=== PATIENT | male | born 1985 | race Caucasian/White ===

== ENCOUNTER 2016-09-28 19:56 | Emergency (ER) | payer BC ==
[~2016-09-28] VITALS: Ht 172.7 cm; Wt 104.5 kg
[~2016-09-28 19:56] MED LIST: COLACE 100100 MG/CAP PO; DILAUDID 2MG TAB2 MG PO; FLEXERIL5 MG PO; INVANZ INJ1 G/VIAL IV; MOTRIN 800800 MG/TAB PO; NAPROSYN500 MG PO; NEURONTIN100 MG/CAP PO; NO HOME MEDICATIONS; NORCO 325 MG-51 TAB PO; PERCOCET 325 MG1 TA2 PO; PREDNISONE20 MG PO; ROXICODONE 55 MG/TAB PO; TYLENOL 325MG325 MG PO; VALIUM 5MG T5 MG/TAB PO; VANCOCIN HCL1 GM IV
[2016-09-28 19:58] VITALS: BP 178/100; TEMP 99
[2016-09-28] MEDS ORDERED: CEPHALEXIN500 M1 PO (20:59)
[2016-09-28 22:40] VITALS: PULSE 90
== END 2016-09-28 22:35 | disposition home or self-care (01) ==
LOC: COL.ER 19:56
DX: S62.632B Displaced fracture of distal phalanx of right middle finger, initial encounter for open fracture (principal); S62.630A Displaced fracture of distal phalanx of right index finger, initial encounter for closed fracture; S60.141A Contusion of right ring finger with damage to nail, initial encounter; W23.0XXA Caught, crushed, jammed, or pinched between moving objects, initial encounter; Y92.009 Unspecified place in unspecified non-institutional (private) residence as the place of occurrence of the external cause

== ENCOUNTER 2018-08-19 11:37 | Emergency (ER) | payer OTHER ==
[~2018-08-19] VITALS: Ht 172.7 cm; Wt 104.5 kg
[~2018-08-19 11:37] MED LIST changes: +CEPHALEXIN500 M1 PO
[2018-08-19 11:38] VITALS: BP 184/113; PULSE 103; TEMP 97.8
[2018-08-19] MEDS ORDERED: PERCOCET 325 MG1 TA2 PO (12:34)
[2018-08-19] MEDS ORDERED: PEN-VEE K500 MG PO (12:34)
== END 2018-08-19 13:25 | disposition home or self-care (01) ==
LOC: COL.ER 11:37
DX: S02.5XXA Fracture of tooth (traumatic), initial encounter for closed fracture (principal); S00.81XA Abrasion of other part of head, initial encounter; Z23 Encounter for immunization; W20.8XXA Other cause of strike by thrown, projected or falling object, initial encounter; Y92.59 Other trade areas as the place of occurrence of the external cause

== ENCOUNTER 2018-10-23 16:49 | Emergency (ER) | payer BC ==
[~2018-10-23] VITALS: Ht 172.7 cm; Wt 97.7 kg
[~2018-10-23 16:49] MED LIST changes: +PEN-VEE K500 MG PO
[2018-10-23 16:55] VITALS: TEMP 98.7
[2018-10-23 17:38] LABS: BASO % 0.6 % (0.0-2.0); EOS # 0.1 (0.0-0.7); EOS % 0.8 % (0-4.0); GRAN # 5.4 (1.4-6.5); GRAN % 76.3 % (42.2-75.2); HEMATOCRIT 45.9 % (42.0-52.0); HEMOGLOBIN 14.8 g/dl (13.5-18.0); LYMPH # 1.2 (1.2-3.4); LYMPH % 16.6 % (20.0-51.0); MEAN CELL VOLUME 84 fl (80.0-100.0); MEAN CORPUSCULAR HEMOGLOBIN 27 pg (27.0-31.0); MEAN CORPUSCULAR HGB CONC 32 g/dl (33.0-37.0); MEAN PLATELET VOLUME 10.9 fl (7.4-10.4); MONO # 0.4 (0.1-0.6); MONO % 5.6 % (1.7-9.3); PLATELET COUNT 288 K/mm3 (130-400); RED BLOOD COUNT 5.46 M/mm3 (4.20-5.60); REDCELL DISTRIBUTION WIDTH-CV 12.4 % (11.5-14.5)
[2018-10-23 17:50] LABS: ALANINE AMINOTRANSFERASE 35 U/L (21-72); ALBUMIN 4.8 gm/dL (3.5-5.0); ALKALINE PHOSPHATASE 50 U/L (50-136); ANION GAP 13 mmol/L (7-16); AST,SGOT 35 U/L (15-37); BILIRUBIN,TOTAL 0.7 mg/dL (0.0-1.0); BLOOD UREA NITROGEN 5 mg/dL (9-20); CALCIUM 9.5 mg/dL (8.4-10.2); CARBON DIOXIDE 27 mmol/L (22-30); CHLORIDE 102 mmol/L (98-107); CREATININE, serum 0.86 (0.66-1.25); GLUCOSE 133 mg/dL (74-106); POTASSIUM 3.3 mmol/L (3.4-5.0); SODIUM 141 mmol/L (137-145); TOTAL PROTEIN 8.3 gm/dL (6.4-8.2)
[2018-10-23 18:16] LABS: ACETAMINOPHEN < 10 ug/mL (10-30); ALCOHOL(ethanol),MEDICAL < 10 mg/dL; SALICYLATE < 1.0 mg/dL
[2018-10-23 18:19] LABS: TSH w REFLEX 0.333 uIU/mL (0.465-4.680)
[2018-10-23 18:21] LABS: COLLECTION METHOD CLEAN CATCH
[2018-10-23 18:46] LABS: PH 6 (5-8); URINE APPEARANCE Clear; URINE BILIRUBIN Negative (NEGATIVE); URINE COLOR Yellow; URINE GLUCOSE Negative (NEGATIVE); URINE KETONE Trace (NEGATIVE); URINE PROTEIN(semi-quant) Negative (NEGATIVE)
[2018-10-23 18:47] LABS: URINE BACTERIA None Seen /hpf; URINE BLOOD Negative (NEGATIVE); URINE LEUKOCYTE ESTERASE Negative (NEGATIVE); URINE NITRATE Negative (NEGATIVE)
[2018-10-23 18:50] LABS: TRICYCLIC ANTIDEPRESS URINE NEGATIVE
[2018-10-24 15:30] VITALS: BP 132/75; PULSE 69
== END 2018-10-24 15:29 ==
LOC: COL.ER 16:49
PROVIDERS: Emergency Medicine
DX: F32.9 Major depressive disorder, single episode, unspecified (principal); R45.851 Suicidal ideations

== ENCOUNTER 2019-02-13 14:47 | Emergency (ER) | payer BC ==
[~2019-02-13] VITALS: Ht 172.7 cm; Wt 95.5 kg
[2019-02-13 14:55] VITALS: TEMP 99.2
[2019-02-13 16:03] LABS: COLLECTION METHOD CLEAN CATCH
[2019-02-13 16:09] LABS: BASO # 0.1 (0.0-0.2); BASO % 0.5 % (0.0-2.0); EOS # 0.4 (0.0-0.7); EOS % 3.9 % (0-4.0); GRAN % 64.2 % (42.2-75.2); HEMATOCRIT 44.5 % (42.0-52.0); HEMOGLOBIN 14.5 g/dl (13.5-18.0); LYMPH # 2.6 (1.2-3.4); LYMPH % 23.9 % (20.0-51.0); MEAN CELL VOLUME 85 fl (80.0-100.0); MEAN CORPUSCULAR HEMOGLOBIN 28 pg (27.0-31.0); MEAN CORPUSCULAR HGB CONC 33 g/dl (33.0-37.0); MEAN PLATELET VOLUME 10.7 fl (7.4-10.4); MONO # 0.8 (0.1-0.6); MONO % 7.3 % (1.7-9.3); PLATELET COUNT 270 K/mm3 (130-400); RED BLOOD COUNT 5.25 M/mm3 (4.20-5.60); REDCELL DISTRIBUTION WIDTH-CV 13.2 % (11.5-14.5)
[2019-02-13 16:15] LABS: MUCOUS Present /lpf; PH 7 (5-8); SQUAMOUS EPITHELIAL None Seen /hpf; URINE APPEARANCE Hazy; URINE BACTERIA None Seen /hpf; URINE BILIRUBIN Negative (NEGATIVE); URINE BLOOD Negative (NEGATIVE); URINE COLOR Yellow; URINE GLUCOSE Negative (NEGATIVE); URINE KETONE Negative (NEGATIVE); URINE LEUKOCYTE ESTERASE Negative (NEGATIVE); URINE NITRATE Negative (NEGATIVE); URINE PROTEIN(semi-quant) Negative (NEGATIVE); URINE RBC 0-2 /hpf; URINE UROBILINOGEN Negative (NEGATIVE)
[2019-02-13 16:26] LABS: ALANINE AMINOTRANSFERASE 35 U/L (21-72); ALBUMIN 4.3 gm/dL (3.5-5.0); ALKALINE PHOSPHATASE 60 U/L (50-136); ANION GAP 9 mmol/L (7-16); AST,SGOT 26 U/L (15-37); BILIRUBIN,TOTAL 0.2 mg/dL (0.0-1.0); BLOOD UREA NITROGEN 9 mg/dL (9-20); CARBON DIOXIDE 28 mmol/L (22-30); CHLORIDE 102 mmol/L (98-107); CREATININE, serum 0.72 (0.66-1.25); GLUCOSE 90 mg/dL (74-106); POTASSIUM 3.9 mmol/L (3.4-5.0); SODIUM 139 mmol/L (137-145); TOTAL PROTEIN 7.7 gm/dL (6.4-8.2)
[2019-02-13 16:28] LABS: ACETAMINOPHEN < 10 ug/mL (10-30); ALCOHOL(ethanol),MEDICAL < 10 mg/dL; SALICYLATE < 1.0 mg/dL
[2019-02-13 16:33] LABS: TRICYCLIC ANTIDEPRESS URINE NEGATIVE
[2019-02-13 22:30] VITALS: BP 127/79
[2019-02-13] MEDS ORDERED: WELLBUTRIN SR150 M1 PO (23:26)
[2019-02-13] MEDS ORDERED: EFFEXOR-XR150 MG PO (23:26)
[2019-02-14 00:30] VITALS: PULSE 69
== END 2019-02-14 00:30 ==
LOC: COL.ER 14:47
PROVIDERS: Family Medicine
DX: F32.9 Major depressive disorder, single episode, unspecified (principal); F14.10 Cocaine abuse, uncomplicated

== ENCOUNTER 2019-09-30 15:49 | Emergency (ER) | payer BC ==
[~2019-09-30] VITALS: Ht 172.7 cm; Wt 100.0 kg
[~2019-09-30 15:49] MED LIST changes: +EFFEXOR-XR150 MG PO; +WELLBUTRIN SR150 M1 PO
[2019-09-30 15:54] VITALS: TEMP 97.8
[2019-09-30] MEDS ORDERED: VALIUM 10MG10 MG/TAB PO (16:23)
[2019-09-30] MEDS ORDERED: PERCOCET 325 MG1 TA2 PO (16:23)
[2019-09-30] MEDS ORDERED: MEDROL 4MG DOSPA4 MG PO (16:23)
[2019-09-30 16:50] VITALS: BP 146/97; PULSE 84
== END 2019-09-30 16:50 | disposition home or self-care (01) ==
LOC: COL.ER 15:49
DX: M54.42 Lumbago with sciatica, left side (principal); G89.29 Other chronic pain
CPT/HCPCS: J1170; J1885

== ENCOUNTER 2019-10-05 08:21 | Emergency (ER) | payer BC ==
[~2019-10-05] VITALS: Ht 172.7 cm; Wt 100.0 kg
[~2019-10-05 08:21] MED LIST changes: +MEDROL 4MG DOSPA4 MG PO; +VALIUM 10MG10 MG/TAB PO
[2019-10-05 08:24] VITALS: TEMP 98.8
[2019-10-05 10:12] LABS: COLLECTION METHOD CLEAN CATCH
[2019-10-05 10:30] LABS: MUCOUS Present /lpf; PH 6 (5-8); SQUAMOUS EPITHELIAL None Seen /hpf; URINE APPEARANCE Clear; URINE BACTERIA Rare /hpf; URINE BILIRUBIN Negative (NEGATIVE); URINE BLOOD 1+ (NEGATIVE); URINE COLOR Yellow; URINE GLUCOSE Negative (NEGATIVE); URINE KETONE Negative (NEGATIVE); URINE LEUKOCYTE ESTERASE Negative (NEGATIVE); URINE NITRATE Negative (NEGATIVE); URINE PROTEIN(semi-quant) Negative (NEGATIVE); URINE RBC 0-2 /hpf; URINE UROBILINOGEN Negative (NEGATIVE)
[2019-10-05] MEDS ORDERED: PERCOCET 325 MG1 TA2 PO (11:44)
[2019-10-05 12:06] VITALS: BP 141/87; PULSE 90
== END 2019-10-05 12:06 | disposition home or self-care (01) ==
LOC: COL.ER 08:21
PROVIDERS: Physician Assistant
DX: M54.16 Radiculopathy, lumbar region (principal); Z98.890 Other specified postprocedural states
CPT/HCPCS: J1170

== ENCOUNTER 2019-12-01 10:18 | Emergency (ER) | payer BC ==
[~2019-12-01] VITALS: Ht 172.7 cm; Wt 100.0 kg
[2019-12-01 10:21] VITALS: BP 123/83; PULSE 104; TEMP 97.4
== END 2019-12-01 12:00 | disposition left against medical advice (07) ==
LOC: COL.ER 10:18
DX: M54.5 Low back pain (principal); Z53.21 Procedure and treatment not carried out due to patient leaving prior to being seen by health care provider

== ENCOUNTER 2020-01-14 12:06 | Emergency (ER) | payer BC ==
[~2020-01-14] VITALS: Ht 172.7 cm; Wt 100.0 kg
[2020-01-14 12:16] VITALS: TEMP 98.2
[2020-01-14] MEDS ORDERED: ZESTRIL 10MG10 MG PO (12:19)
[2020-01-14] MEDS ORDERED: NORCO 325 MG-101 TAB PO (12:26)
[2020-01-14] MEDS ORDERED: PRINIVIL10 MG PO (12:26)
[2020-01-14] MEDS ORDERED: FLEXERIL 1010 MG/TAB PO (12:26)
[2020-01-14 12:44] LABS: BASO # 0.1 (0.0-0.2); BASO % 0.6 % (0.0-2.0); EOS # 0.4 (0.0-0.7); EOS % 3.3 % (0-4.0); GRAN # 8.9 (1.4-6.5); GRAN % 70.5 % (42.2-75.2); HEMATOCRIT 46.3 % (42.0-52.0); HEMOGLOBIN 15.1 g/dl (13.5-18.0); LYMPH # 2.3 (1.2-3.4); LYMPH % 18.2 % (20.0-51.0); MEAN CELL VOLUME 84 fl (80.0-100.0); MEAN CORPUSCULAR HEMOGLOBIN 27 pg (27.0-31.0); MEAN CORPUSCULAR HGB CONC 33 g/dl (33.0-37.0); MEAN PLATELET VOLUME 10.6 fl (7.4-10.4); MONO # 0.9 (0.1-0.6); PLATELET COUNT 292 K/mm3 (130-400); RED BLOOD COUNT 5.51 M/mm3 (4.20-5.60); REDCELL DISTRIBUTION WIDTH-CV 12.5 % (11.5-14.5)
[2020-01-14 13:02] LABS: COLLECTION METHOD CLEAN CATCH
[2020-01-14 13:07] LABS: MUCOUS Present /lpf; PH 6 (5-8); SQUAMOUS EPITHELIAL None Seen /hpf; URINE APPEARANCE Clear; URINE BACTERIA None Seen /hpf; URINE BILIRUBIN Negative (NEGATIVE); URINE BLOOD Negative (NEGATIVE); URINE COLOR Yellow; URINE GLUCOSE Negative (NEGATIVE); URINE KETONE Negative (NEGATIVE); URINE LEUKOCYTE ESTERASE Negative (NEGATIVE); URINE NITRATE Negative (NEGATIVE); URINE PROTEIN(semi-quant) 1+ (NEGATIVE); URINE RBC None Seen /hpf; URINE UROBILINOGEN Negative (NEGATIVE)
[2020-01-14 13:16] LABS: TRICYCLIC ANTIDEPRESS URINE NEGATIVE
[2020-01-14 13:51] LABS: ALBUMIN 4.7 gm/dL (3.5-5.0); BILIRUBIN,TOTAL 1.1 mg/dL (0.0-1.0); CALCIUM 9.4 mg/dL (8.4-10.2); CREATININE, serum 0.85 (0.66-1.25); POTASSIUM 3.4 mmol/L (3.4-5.0); TOTAL PROTEIN 7.9 gm/dL (6.4-8.2)
[2020-01-14 16:39] LABS: ACETAMINOPHEN < 10 ug/mL (10-30); SALICYLATE < 1.0 mg/dL
--- NOTE | 2020-01-14 16:48 | NUR ---
SW received a call from the ER about patient. patient is a 34 year old male who lives alone in [facility], He lists his mom Maribell as care support and patients EMR [phone]. 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 Patient reports that hehas not used since March 2019 after a stay in [facility] in [place]. Patient reports going to several different facilities before trying this one. Patient did not give a reason for using cocain, however indicated that he felt like things were going good, he was going to try it, and no one would know. Patient reports that he had used 4-5 times over the weekend and the last time he started feeling symptoms of blurred, dull visiion, chest pains, increased heart rate, and shortness of breath. Patient reported that after he thought about dialing 911, he decided to drive himself to the hospital. patient also indicated that he had not slept or eaten the entire weekend, and that he had been prescribed wellbutrin but he had not taken it in approximately 1 week. patient gave this SW verbal permission to speak with his mother Maribell, who was waiting in the waiting room. Maribell had expressed concern for patient as he had previous suicide attempts, and had been using cocaine in the past. Patient reports that she did not feel comfortable with patient staying with her as they (patient, Maribell and patients father) had previous tensions about patients using cocaine. Maribell indicated that patients friend had called the crisis center to see if patient could stay there until a treatment facility could be located but that they said he did not fit criteria. Maribell indicated that she did not understand how he could not fit criteria because she had found a suicide note in the patients notebook when she went to his house to get him some personal items. According to Maribell and patient, the patient does have a history of depression, and that he has a numerous amount of supports. Patient indicated(supported by Maribell) that he has a difficulty time explaining feelings. SW attempted to contact previous rehab facility that patient stayed at, however facility was supposed to return call and had not. SW did educate patient on treatment facilities that are closer to the area, and the benefit of attending facilities that not only target addicitions but also targe mental health disorders.
[2020-01-14 22:50] VITALS: BP 147/100; PULSE 82
== END 2020-01-14 22:55 | disposition home or self-care (01) ==
LOC: COL.ER 12:06
PROVIDERS: Emergency Medicine; Family Medicine
DX: F14.10 Cocaine abuse, uncomplicated (principal); I10 Essential (primary) hypertension; R20.2 Paresthesia of skin
CPT/HCPCS: J2060; J3411; J7030; J7120

== ENCOUNTER 2020-08-10 03:31 | Emergency (ER) | payer BC ==
[~2020-08-10] VITALS: Ht 172.7 cm; Wt 100.0 kg
[~2020-08-10 03:31] MED LIST changes: +FLEXERIL 1010 MG/TAB PO; +NORCO 325 MG-101 TAB PO; +PRINIVIL10 MG PO; +ZESTRIL 10MG10 MG PO
[2020-08-10 03:35] VITALS: TEMP 98
[2020-08-10 03:57] LABS: BASO % 0.4 % (0.0-2.0); EOS # 0.4 (0.0-0.7); GRAN # 5.8 (1.4-6.5); GRAN % 53.4 % (42.2-75.2); HEMATOCRIT 41.8 % (42.0-52.0); HEMOGLOBIN 13.3 g/dl (13.5-18.0); LYMPH # 3.6 (1.2-3.4); LYMPH % 33.3 % (20.0-51.0); MEAN CELL VOLUME 87 fl (80.0-100.0); MEAN CORPUSCULAR HEMOGLOBIN 28 pg (27.0-31.0); MEAN CORPUSCULAR HGB CONC 32 g/dl (33.0-37.0); MONO # 0.9 (0.1-0.6); MONO % 8.6 % (1.7-9.3); PLATELET COUNT 304 K/mm3 (130-400); RED BLOOD COUNT 4.83 M/mm3 (4.20-5.60); REDCELL DISTRIBUTION WIDTH-CV 12.5 % (11.5-14.5)
[2020-08-10 04:14] LABS: ALANINE AMINOTRANSFERASE 24 U/L (4-49); ALBUMIN 4.3 gm/dL (3.5-5.0); ALKALINE PHOSPHATASE 40 U/L (50-136); ANION GAP 7 mmol/L (7-16); AST,SGOT 29 U/L (15-37); BILIRUBIN,TOTAL 0.5 mg/dL (0.0-1.0); BLOOD UREA NITROGEN 10 mg/dL (9-20); CALCIUM 9.2 mg/dL (8.4-10.2); CARBON DIOXIDE 29 mmol/L (22-30); CHLORIDE 103 mmol/L (98-107); CREATININE, serum 0.81 (0.66-1.25); GLUCOSE 78 mg/dL (74-106); POTASSIUM 3.8 mmol/L (3.4-5.0); SODIUM 138 mmol/L (137-145); TOTAL PROTEIN 7.9 gm/dL (6.4-8.2)
[2020-08-10 04:24] LABS: TROPONIN-I < 0.012 ng/mL (0.000-0.035)
[2020-08-10 04:37] LABS: C-REACTIVE PROTEIN 7.4 mg/dL (0.0-0.9); CREATINE KINASE 176 U/L (55-170)
[2020-08-10 08:08] VITALS: BP 134/88; PULSE 104
== END 2020-08-10 08:12 | disposition home or self-care (01) ==
LOC: COL.ER 03:31
PROVIDERS: Emergency Medicine
DX: R07.89 Other chest pain (principal); R00.0 Tachycardia, unspecified; I10 Essential (primary) hypertension; Z79.899 Other long term (current) drug therapy; Z86.16 Personal history of COVID-19
CPT/HCPCS: J2060; J7030; Q9967

== ENCOUNTER 2020-08-12 19:44 | Emergency (ER) | payer BC ==
[~2020-08-12] VITALS: Ht 172.7 cm; Wt 100.0 kg
[2020-08-12 19:52] VITALS: TEMP 98.4
[2020-08-12 20:54] LABS: BASO % 0.5 % (0.0-2.0); EOS # 0.3 (0.0-0.7); EOS % 4.4 % (0-4.0); GRAN # 4.7 (1.4-6.5); GRAN % 61.8 % (42.2-75.2); HEMATOCRIT 41.5 % (42.0-52.0); HEMOGLOBIN 13.4 g/dl (13.5-18.0); LYMPH # 2.1 (1.2-3.4); LYMPH % 27.5 % (20.0-51.0); MEAN CELL VOLUME 85 fl (80.0-100.0); MEAN CORPUSCULAR HEMOGLOBIN 28 pg (27.0-31.0); MEAN CORPUSCULAR HGB CONC 32 g/dl (33.0-37.0); MEAN PLATELET VOLUME 10.1 fl (7.4-10.4); MONO # 0.4 (0.1-0.6); MONO % 5.5 % (1.7-9.3); PLATELET COUNT 340 K/mm3 (130-400); RED BLOOD COUNT 4.87 M/mm3 (4.20-5.60)
[2020-08-12 21:26] LABS: ALANINE AMINOTRANSFERASE 25 U/L (4-49); ALBUMIN 3.9 gm/dL (3.5-5.0); ALKALINE PHOSPHATASE 42 U/L (50-136); ANION GAP 8 mmol/L (7-16); AST,SGOT 30 U/L (15-37); BILIRUBIN,TOTAL 0.2 mg/dL (0.0-1.0); BLOOD UREA NITROGEN 15 mg/dL (9-20); CALCIUM 8.9 mg/dL (8.4-10.2); CARBON DIOXIDE 22 mmol/L (22-30); CHLORIDE 108 mmol/L (98-107); CREATININE, serum 0.75 (0.66-1.25); GLUCOSE 162 mg/dL (74-106); POTASSIUM 3.8 mmol/L (3.4-5.0); SODIUM 138 mmol/L (137-145); TOTAL PROTEIN 7.2 gm/dL (6.4-8.2)
[2020-08-12 21:44] LABS: TROPONIN-I < 0.012 ng/mL (0.000-0.035)
[2020-08-12 22:05] VITALS: BP 132/82; PULSE 83
== END 2020-08-12 22:05 | disposition home or self-care (01) ==
LOC: COL.ER 19:44
PROVIDERS: Emergency Medicine
DX: R00.2 Palpitations (principal); R07.89 Other chest pain; M79.661 Pain in right lower leg; M25.561 Pain in right knee; R79.1 Abnormal coagulation profile; I10 Essential (primary) hypertension; Z79.899 Other long term (current) drug therapy
CPT/HCPCS: J1650

== ENCOUNTER → 2020-08-13 | Outpatient (CLI) | payer BC | LOC: COL.VAS 08:00 | DX: M79.89 Other specified soft tissue disorders (principal); M79.604 Pain in right leg ==

== ENCOUNTER 2021-03-19 22:19 | Emergency (ER) | payer BC ==
[~2021-03-19] VITALS: Ht 172.7 cm; Wt 97.7 kg
[2021-03-19 23:30] LABS: BASO # 0.1 K/mm3 (0.0-0.2); BASO % 0.3 % (0.0-2.0); EOS # 0.1 K/mm3 (0.0-0.7); EOS % 0.8 % (0.0-4.0); GRAN # 11.6 K/mm3 (1.4-6.5); GRAN % 75.4 % (42.2-75.2); HEMATOCRIT 45.2 % (42.0-52.0); HEMOGLOBIN 14.2 g/dl (13.5-18.0); LYMPH # 2.4 K/mm3 (1.2-3.4); LYMPH % 15.3 % (20.0-51.0); MEAN CELL VOLUME 86 fl (80.0-100.0); MEAN CORPUSCULAR HEMOGLOBIN 27 pg (27-31); MEAN CORPUSCULAR HGB CONC 31 g/dl (33.0-37.0); MONO # 1.2 K/mm3 (0.1-0.6); MONO % 7.6 % (1.7-9.3); PLATELET COUNT 367 K/mm3 (130-400); RED BLOOD COUNT 5.23 M/mm3 (4.20-5.60); REDCELL DISTRIBUTION WIDTH-CV 13.2 % (11.5-14.5)
[2021-03-19 23:42] LABS: ALANINE AMINOTRANSFERASE 37 U/L (0-55); ALBUMIN 3.6 gm/dL (3.5-5.0); ALKALINE PHOSPHATASE 38 U/L (40-150); ANION GAP 11 mmol/L (7-16); AST,SGOT 16 U/L (5-34); BILIRUBIN,TOTAL 0.6 mg/dL (0.2-1.2); BLOOD UREA NITROGEN 8 mg/dL (9-21); CALCIUM 8.4 mg/dL (8.4-10.2); CARBON DIOXIDE 21 mmol/L (22-29); CHLORIDE 105 mmol/L (98-107); GLUCOSE 100 mg/dL (70-99); POTASSIUM 3.7 mmol/L (3.5-4.5); SODIUM 137 mmol/L (136-145); TOTAL PROTEIN 7.3 gm/dL (6.2-8.1)
[2021-03-19 23:44] LABS: ALCOHOL(ethanol),MEDICAL < 10 mg/dL (0-10); SALICYLATE < 5.0 mg/dL (15.0-30.0)
[2021-03-20 00:20] LABS: TRICYCLIC ANTIDEPRESS URINE NEGATIVE
[2021-03-20 13:40] VITALS: BP 130/70; PULSE 114; TEMP 98.4
== END 2021-03-20 13:40 ==
LOC: COL.ER 22:19
PROVIDERS: Nurse Practitioner
DX: T43.592A Poisoning by other antipsychotics and neuroleptics, intentional self-harm, initial encounter (principal); F41.9 Anxiety disorder, unspecified; F32.A Depression, unspecified; Z20.822 Contact with and (suspected) exposure to COVID-19; Z79.899 Other long term (current) drug therapy; X83.8XXA Intentional self-harm by other specified means, initial encounter

== ENCOUNTER → 2021-05-03 | Emergency (ER) | payer BC ==
[2021-05-03 01:17] LABS: BASO # 0.1 K/mm3 (0.0-0.2); BASO % 0.5 % (0.0-2.0); EOS # 0.1 K/mm3 (0.0-0.7); EOS % 1.2 % (0.0-4.0); GRAN # 7.8 K/mm3 (1.4-6.5); HEMATOCRIT 49.6 % (42.0-52.0); HEMOGLOBIN 15.2 g/dl (13.5-18.0); LYMPH # 2.2 K/mm3 (1.2-3.4); LYMPH % 20.2 % (20.0-51.0); MEAN CELL VOLUME 86 fl (80.0-100.0); MEAN CORPUSCULAR HEMOGLOBIN 26 pg (27-31); MEAN CORPUSCULAR HGB CONC 31 g/dl (33.0-37.0); MEAN PLATELET VOLUME 10.1 fl (7.4-10.4); MONO # 0.6 K/mm3 (0.1-0.6); MONO % 5.7 % (1.7-9.3); PLATELET COUNT 374 K/mm3 (130-400); RED BLOOD COUNT 5.77 M/mm3 (4.20-5.60); REDCELL DISTRIBUTION WIDTH-CV 13.7 % (11.5-14.5)
[2021-05-03 01:32] LABS: ALANINE AMINOTRANSFERASE 54 U/L (0-55); ALBUMIN 3.9 gm/dL (3.5-5.0); ALKALINE PHOSPHATASE 38 U/L (40-150); ANION GAP 9 mmol/L (7-16); AST,SGOT 32 U/L (5-34); BILIRUBIN,TOTAL 0.5 mg/dL (0.2-1.2); BLOOD UREA NITROGEN 9 mg/dL (9-21); CALCIUM 8.7 mg/dL (8.4-10.2); CARBON DIOXIDE 22 mmol/L (22-29); CHLORIDE 108 mmol/L (98-107); CREATININE, serum 0.82 mg/dL (0.72-1.25); GLUCOSE 101 mg/dL (70-99); SODIUM 139 mmol/L (136-145); TOTAL PROTEIN 7.3 gm/dL (6.2-8.1)
[2021-05-03 01:49] LABS: ACETAMINOPHEN < 1.0 ug/mL (10-30); ALCOHOL(ethanol),MEDICAL < 10 mg/dL (0-10); SALICYLATE < 5.0 mg/dL (15.0-30.0)
[2021-05-03 03:58] LABS: COLLECTION METHOD CLEAN CATCH
[2021-05-03 04:05] LABS: MUCOUS Present (NOT PRESENT); PH 5 (5-8); SQUAMOUS EPITHELIAL None Seen /hpf (0-10); URINE APPEARANCE Clear (CLEAR/HAZY); URINE BACTERIA None Seen /hpf (NONE SEEN); URINE BILIRUBIN Negative (NEGATIVE); URINE BLOOD Negative (NEGATIVE); URINE COLOR Yellow (YELLOW); URINE GLUCOSE Negative (NEGATIVE); URINE KETONE 1+ (NEGATIVE); URINE LEUKOCYTE ESTERASE Negative (NEGATIVE); URINE NITRATE Negative (NEGATIVE); URINE PROTEIN(semi-quant) Negative (NEGATIVE); URINE RBC 0-2 /hpf (0-2); URINE UROBILINOGEN Negative (NEGATIVE)
[2021-05-03 04:12] LABS: TRICYCLIC ANTIDEPRESS URINE NEGATIVE
[2021-05-04 11:23] VITALS: TEMP 98
[2021-05-04 13:56] VITALS: BP 180/108; PULSE 108
== END ==
LOC: COL.ER 00:18
PROVIDERS: Physician Assistant
DX: F32.A Depression, unspecified (principal); Z20.822 Contact with and (suspected) exposure to COVID-19

== ENCOUNTER 2021-09-12 13:44 | Emergency (ER) | payer BC ==
[~2021-09-12] VITALS: Ht 172.7 cm; Wt 95.5 kg
[2021-09-12 13:54] VITALS: TEMP 98.9
[2021-09-12 14:25] LABS: BASO # 0.1 K/mm3 (0.0-0.2); BASO % 0.6 % (0.0-2.0); EOS # 0.1 K/mm3 (0.0-0.7); EOS % 1.1 % (0.0-4.0); GRAN # 5.6 K/mm3 (1.4-6.5); GRAN % 67.6 % (42.2-75.2); HEMATOCRIT 55.7 % (42.0-52.0); HEMOGLOBIN 17.3 g/dl (13.5-18.0); LYMPH # 1.9 K/mm3 (1.2-3.4); LYMPH % 22.8 % (20.0-51.0); MEAN CELL VOLUME 84 fl (80.0-100.0); MEAN CORPUSCULAR HEMOGLOBIN 26 pg (27-31); MEAN CORPUSCULAR HGB CONC 31 g/dl (33.0-37.0); MEAN PLATELET VOLUME 10.5 fl (7.4-10.4); MONO # 0.6 K/mm3 (0.1-0.6); MONO % 7.7 % (1.7-9.3); PLATELET COUNT 360 K/mm3 (130-400); REDCELL DISTRIBUTION WIDTH-CV 15.8 % (11.5-14.5)
[2021-09-12 14:54] LABS: ALANINE AMINOTRANSFERASE 33 U/L (0-55); ALBUMIN 3.7 gm/dL (3.5-5.0); ALKALINE PHOSPHATASE 38 U/L (40-150); ANION GAP 10 mmol/L (7-16); AST,SGOT 22 U/L (5-34); BILIRUBIN,TOTAL 0.9 mg/dL (0.2-1.2); BLOOD UREA NITROGEN 8 mg/dL (9-21); CARBON DIOXIDE 25 mmol/L (22-29); CHLORIDE 105 mmol/L (98-107); GLUCOSE 127 mg/dL (70-99); POTASSIUM 4.1 mmol/L (3.5-4.5); SODIUM 140 mmol/L (136-145); TOTAL PROTEIN 7.3 gm/dL (6.2-8.1)
[2021-09-12 15:03] LABS: TROPONIN-I < 0.010 ng/mL (0.00-0.033)
[2021-09-12] MEDS ORDERED: MOTRIN 800800 MG/TAB PO (16:01)
[2021-09-12] MEDS ORDERED: NORCO 325 MG-51 TAB PO (16:01)
[2021-09-12 16:21] VITALS: BP 179/121; PULSE 93
== END 2021-09-12 16:23 | disposition home or self-care (01) ==
LOC: COL.ER 13:44
PROVIDERS: Personal Emergency Response Attendant
DX: R55 Syncope and collapse (principal); R07.89 Other chest pain; E86.0 Dehydration; Z28.310 Unvaccinated for COVID-19
CPT/HCPCS: J1885; J7030; Q9967

== ENCOUNTER 2021-09-13 20:22 | Inpatient (IN) | payer BC ==
[~2021-09-13] VITALS: Ht 325.1 cm; Wt 94.6 kg
[2021-09-13 21:36] LABS: BASO # 0.1 K/mm3 (0.0-0.2); BASO % 0.7 % (0.0-2.0); EOS # 0.2 K/mm3 (0.0-0.7); EOS % 1.7 % (0.0-4.0); GRAN # 7.3 K/mm3 (1.4-6.5); GRAN % 60.7 % (42.2-75.2); HEMOGLOBIN 17.1 g/dl (13.5-18.0); LYMPH # 3.4 K/mm3 (1.2-3.4); LYMPH % 27.8 % (20.0-51.0); MEAN CELL VOLUME 86 fl (80.0-100.0); MEAN CORPUSCULAR HEMOGLOBIN 26 pg (27-31); MEAN CORPUSCULAR HGB CONC 30 g/dl (33.0-37.0); MONO # 1.1 K/mm3 (0.1-0.6); MONO % 8.8 % (1.7-9.3); PLATELET COUNT 363 K/mm3 (130-400); RED BLOOD COUNT 6.55 M/mm3 (4.20-5.60); REDCELL DISTRIBUTION WIDTH-CV 15.1 % (11.5-14.5)
[2021-09-13 21:37] LABS: HEMATOCRIT 56.2 % (42.0-52.0)
[2021-09-13 21:48] LABS: ALANINE AMINOTRANSFERASE 37 U/L (0-55); ALBUMIN 3.8 gm/dL (3.5-5.0); ALKALINE PHOSPHATASE 42 U/L (40-150); ANION GAP 13 mmol/L (7-16); AST,SGOT 23 U/L (5-34); BILIRUBIN,TOTAL 0.5 mg/dL (0.2-1.2); BLOOD UREA NITROGEN 8 mg/dL (9-21); CALCIUM 9.2 mg/dL (8.4-10.2); CARBON DIOXIDE 26 mmol/L (22-29); CHLORIDE 105 mmol/L (98-107); CREATINE KINASE 86 U/L (30-200); CREATININE, serum 1.02 mg/dL (0.72-1.25); GLUCOSE 76 mg/dL (70-99); POTASSIUM 4.5 mmol/L (3.5-4.5); SODIUM 144 mmol/L (136-145); TOTAL PROTEIN 7.4 gm/dL (6.2-8.1)
[2021-09-13 22:08] LABS: THYROID STIMULATING HORMONE 1.717 uIU/mL (0.350-4.940)
[2021-09-13 22:19] LABS: TROPONIN-I < 0.010 ng/mL (0.00-0.033)
[2021-09-14] VITALS (497 sets, daily range): BP systolic 117–160; BP diastolic 75–102; PULSE 75–120; TEMP 97.9–98.9; O2SAT 87–99
--- NOTE | 2021-09-14 00:43 | NUR ---
Received report from ED nurse
--- NOTE | 2021-09-14 01:12 | NUR ---
Patient arrives to ICU room 6 via ED stretcher. Patient is alert and oriented. He is able to ambulate to ICU bed with standby assistance. Initial BP of 160/102, all other vitals within normal limits; he is on room air. Cardene drip infusing upon arrival, see IV drip titrations.
--- NOTE | 2021-09-14 02:00 | NUR ---
Patient's belongings include street clothes, sandals, and a cell phone. Patient states antolin was sent home with his mom. Patient denies having dentures, partials, plates, or hearing aids. He denies having any removable jewelry on his person at this time.
[2021-09-14 04:45] LABS: TRICYCLIC ANTIDEPRESS URINE NEGATIVE
[2021-09-14 05:38] LABS: BASO # 0.1 K/mm3 (0.0-0.2); BASO % 0.4 % (0.0-2.0); EOS # 0.2 K/mm3 (0.0-0.7); EOS % 1.7 % (0.0-4.0); GRAN # 9.1 K/mm3 (1.4-6.5); HEMATOCRIT 50.9 % (42.0-52.0); HEMOGLOBIN 15.8 g/dl (13.5-18.0); LYMPH # 3.2 K/mm3 (1.2-3.4); LYMPH % 23.5 % (20.0-51.0); MEAN CELL VOLUME 85 fl (80.0-100.0); MEAN CORPUSCULAR HEMOGLOBIN 26 pg (27-31); MEAN CORPUSCULAR HGB CONC 31 g/dl (33.0-37.0); MONO % 7.2 % (1.7-9.3); PLATELET COUNT 328 K/mm3 (130-400); REDCELL DISTRIBUTION WIDTH-CV 14.8 % (11.5-14.5)
[2021-09-14 06:07] LABS: CALCIUM 8.3 mg/dL (8.4-10.2); CREATININE, serum 0.82 mg/dL (0.72-1.25); POTASSIUM 3.9 mmol/L (3.5-4.5)
--- NOTE | 2021-09-14 07:30 | NUR ---
Report given to ETELVINA Rose.
--- NOTE | 2021-09-14 09:21 | NUR ---
Sw met with patient to complete intake. Patient states that he loves in [facility] alone. Next of Kin is hannah Hernadez [phone]. Patient does not utilize DME and is independent with ADLs. PCP is Dr. Berg, pharmacy is [facility]. Patient does not have anyone appointed as DPOA/HC. DC plan of patient is to return to his home upon DC. SW will continue to follow. DC plan: home
--- NOTE | 2021-09-14 12:00 | NUR ---
PT left ICU via wheelchair with all belongings. PT brought to MED floor RM [id number], placed in chair, call light within reach. Nurse notified of PT arrival.
--- NOTE | 2021-09-14 13:00 | NUR ---
PATIENT ARRIVED, SITTING IN CHAIR. VITAL SIGNS WNL. COMPLAING OF CHEST PAIN. NON RADIATING, CONSTANT, IN CENTER OF CHEST, 5/10 PAIN. MD AWARE, NO NEW ORDERS AT THIS TIME.
--- NOTE | 2021-09-14 18:05 | NUR ---
PATIENT CALLED STATING HE DOES NOT FEEL WELL AND SEES STARS. UPON ENTERING ROOM, PATIENT UP SITTING IN THE CHAIR, FULLY DRESSED (WAS IN A GOWN WHEN I LAST SEEN HIM.) VITALS STABLE, SUGAR WNL. HR NORMAL. INFORMED HIM IT WOULD BE BEST IF HE GOT INTO BED SINCE HE IS FEELING DIZZY. HE THEN SAID "NO, I THINK IM FINE RIGHT HERE."\\ PATIENT APPEARS TO BE IN NO DISTRESS. WILL CONT TO MONITOR.
[2021-09-15] VITALS (12 sets, daily range): BP systolic 106–159; BP diastolic 70–89; PULSE 63–89; TEMP 98–98.6
[2021-09-15 05:42] LABS: COLLECTION METHOD CLEAN CATCH
[2021-09-15 05:58] LABS: MUCOUS Present (NOT PRESENT); PH 7 (5-8); SQUAMOUS EPITHELIAL None Seen /hpf (0-10); URINE APPEARANCE Clear (CLEAR/HAZY); URINE BACTERIA Rare /hpf (NONE SEEN); URINE BLOOD Negative (NEGATIVE); URINE COLOR Yellow (YELLOW); URINE GLUCOSE Negative (NEGATIVE); URINE KETONE Negative (NEGATIVE); URINE NITRATE Negative (NEGATIVE); URINE PROTEIN(semi-quant) Negative (NEGATIVE); URINE RBC 0-2 /hpf (0-2); URINE UROBILINOGEN Negative (NEGATIVE)
[2021-09-15 07:10] LABS: BASO # 0.1 K/mm3 (0.0-0.2); BASO % 0.6 % (0.0-2.0); CALCIUM 9.2 mg/dL (8.4-10.2); CREATININE, serum 0.99 mg/dL (0.72-1.25); EOS # 0.3 K/mm3 (0.0-0.7); EOS % 2.5 % (0.0-4.0); GRAN # 6.9 K/mm3 (1.4-6.5); GRAN % 57.9 % (42.2-75.2); HEMOGLOBIN 17.2 g/dl (13.5-18.0); LYMPH # 3.7 K/mm3 (1.2-3.4); LYMPH % 30.9 % (20.0-51.0); MEAN CELL VOLUME 86 fl (80.0-100.0); MEAN CORPUSCULAR HEMOGLOBIN 26 pg (27-31); MEAN CORPUSCULAR HGB CONC 31 g/dl (33.0-37.0); MEAN PLATELET VOLUME 10.6 fl (7.4-10.4); MONO # 0.9 K/mm3 (0.1-0.6); MONO % 7.8 % (1.7-9.3); PLATELET COUNT 405 K/mm3 (130-400); POTASSIUM 4.8 mmol/L (3.5-4.5); RED BLOOD COUNT 6.54 M/mm3 (4.20-5.60); REDCELL DISTRIBUTION WIDTH-CV 15.6 % (11.5-14.5)
--- NOTE | 2021-09-15 09:27 | NUR ---
Initial visit; Patient out of room, Emergency Room Tech spoke wih his mother letting her know of the availability of [facility] and left a card with her. Emergency Room Tech offered mom God's blessings for which she thanked Emergency Room Tech for stopping by.
--- NOTE | 2021-09-15 16:09 | NUR ---
PATIENT HAD LOOP RECORDER PLACED. DRESSING DRY AND INTACT. PATIENT WITH NO COMPLAINTS
--- NOTE | 2021-09-15 19:31 | NUR ---
PT HAD CALLED OUT DURING SHIFT CHANGE AT 1830 REQUESTING MORE PAIN MEDICINE. THIS IS WITHIN THE HOUR WINDOW, SO THIS RN CONTINUED WITH REPORT AND THEN PULLED PAIN MEDICINE FOR HIM. THIS SHOWS 2 HOURS LATER. AVOIDING MORPHINE WITH THIS PATIENT HE IS SUPPOSED TO DISCHARGE SOON. NO OTHER CONCERNS AT THIS TIME. WILL CONTINUE TO MONITOR.
[2021-09-16 03:44] VITALS: BP 126/72; PULSE 75; TEMP 98
[2021-09-16 07:00] LABS: BASO # 0.1 K/mm3 (0.0-0.2); BASO % 0.6 % (0.0-2.0); EOS # 0.2 K/mm3 (0.0-0.7); EOS % 2.1 % (0.0-4.0); GRAN # 6.4 K/mm3 (1.4-6.5); GRAN % 59.7 % (42.2-75.2); HEMOGLOBIN 17.1 g/dl (13.5-18.0); LYMPH % 28.6 % (20.0-51.0); MEAN CELL VOLUME 87 fl (80.0-100.0); MEAN CORPUSCULAR HEMOGLOBIN 27 pg (27-31); MEAN CORPUSCULAR HGB CONC 30 g/dl (33.0-37.0); MEAN PLATELET VOLUME 10.9 fl (7.4-10.4); MONO # 0.9 K/mm3 (0.1-0.6); MONO % 8.6 % (1.7-9.3); PLATELET COUNT 372 K/mm3 (130-400); RED BLOOD COUNT 6.43 M/mm3 (4.20-5.60); REDCELL DISTRIBUTION WIDTH-CV 15.2 % (11.5-14.5)
[2021-09-16 07:02] LABS: HEMATOCRIT 56.2 % (42.0-52.0)
[2021-09-16 07:16] LABS: CALCIUM 9.1 mg/dL (8.4-10.2); CREATININE, serum 1.07 mg/dL (0.72-1.25); POTASSIUM 4.2 mmol/L (3.5-4.5)
[2021-09-16 07:52] VITALS: BP 137/83; PULSE 64; TEMP 98.2
--- NOTE | 2021-09-16 13:38 | NUR ---
PATIENT FOUND IN ROOM, LIEING IN BED. HE STATED HE IS FEELING DIZZY, AND HAS STARTED THROWING UP. HE SAID HE HAS THROWN UP 3 TIMES SINCE COMING BACK UP FROM MRI. BOTH MRI AND MRA NEGATIVE. DR MIRAMONTES INFORMED.
[2021-09-16] MEDS ORDERED: CEPHALEXIN500 M1 PO (13:58)
[2021-09-16] MEDS ORDERED: LOPRESSOR 550 MG/TAB PO (13:59)
[2021-09-16] MEDS ORDERED: HCTZ12.5TAB PO (14:02)
[2021-09-16 15:48] VITALS: BP 145/82; PULSE 66; TEMP 99.2
[2021-09-16 19:46] VITALS: BP 130/89; PULSE 80; TEMP 98.4
[2021-09-16 23:29] VITALS: BP 118/66; PULSE 73; TEMP 98.8
[2021-09-17 04:17] VITALS: BP 137/89; PULSE 73; TEMP 98.3
[2021-09-17 07:32] LABS: BASO # 0.1 K/mm3 (0.0-0.2); BASO % 0.7 % (0.0-2.0); EOS # 0.2 K/mm3 (0.0-0.7); EOS % 1.9 % (0.0-4.0); GRAN # 5.5 K/mm3 (1.4-6.5); GRAN % 57.1 % (42.2-75.2); LYMPH % 30.6 % (20.0-51.0); MEAN CELL VOLUME 85 fl (80.0-100.0); MEAN CORPUSCULAR HEMOGLOBIN 26 pg (27-31); MEAN CORPUSCULAR HGB CONC 31 g/dl (33.0-37.0); MEAN PLATELET VOLUME 10.6 fl (7.4-10.4); MONO # 0.9 K/mm3 (0.1-0.6); MONO % 9.1 % (1.7-9.3); PLATELET COUNT 304 K/mm3 (130-400); RED BLOOD COUNT 6.82 M/mm3 (4.20-5.60); REDCELL DISTRIBUTION WIDTH-CV 15.9 % (11.5-14.5)
[2021-09-17 07:39] LABS: HEMATOCRIT 58.2 % (42.0-52.0)
[2021-09-17 07:40] LABS: CALCIUM 9.2 mg/dL (8.4-10.2); CREATININE, serum 0.88 mg/dL (0.72-1.25); POTASSIUM 4.8 mmol/L (3.5-4.5)
--- NOTE | 2021-09-17 07:41 | NUR ---
PT HAD UNEVENTFUL NIGHT. DID NOT REQUIRE ANY PAIN MEDICATIONS, REPORT GIVEN TO ETELVINA REDDY.
[2021-09-17 08:00] VITALS: BP 132/92; PULSE 71; TEMP 98.1
[2021-09-17 12:00] VITALS: BP 137/93; PULSE 68
--- NOTE | 2021-09-17 12:36 | NUR ---
PATIENT GIVEN ALL ISCHARGE INSTRUCTIONS AND EDUCATION. ALL MEDS REVIEWED. ALL BELONGINGS WITH PATIENT. IV DISCONTINUED. PATIENT LEFT INS TABLE CONDITION IN THE CARE OF HIS MOTHER, BILL.
== END 2021-09-17 11:30 | disposition home or self-care (01) | DRG 262 ==
LOC: COL.ER 20:22 → ICU 23:03 → MEDICAL 23:45 → ICU 23:45 → MEDICAL 09-14 15:39
PROVIDERS: Emergency Medicine; Internal Medicine; Nurse Practitioner Family; Student in an Organized Health Care Education/Training Program; ADMIT Family Medicine
PROC: 0JH632Z Insertion of Monitoring Device into Chest Subcutaneous Tissue and Fascia, Percutaneous Approach (ICD-10-PCS; principal; 2021-09-15)
DX: I16.1 Hypertensive emergency (principal); I10 Essential (primary) hypertension; F32.A Depression, unspecified; D72.829 Elevated white blood cell count, unspecified; G89.29 Other chronic pain; M54.9 Dorsalgia, unspecified; R55 Syncope and collapse; R07.89 Other chest pain; Z28.310 Unvaccinated for COVID-19
CPT/HCPCS: A9500; A9575; C1764; J0360; J2250; J2270; J2785; J7030; J7050

== ENCOUNTER 2021-09-21 18:57 | Emergency (ER) | payer BC ==
[~2021-09-21] VITALS: Ht 172.7 cm; Wt 98.7 kg
[~2021-09-21 18:57] MED LIST changes: +HCTZ12.5TAB PO; +LOPRESSOR 550 MG/TAB PO
[2021-09-21 19:14] VITALS: TEMP 97.5
[2021-09-21 19:46] LABS: BASO # 0.1 K/mm3 (0.0-0.2); BASO % 0.7 % (0.0-2.0); EOS # 0.2 K/mm3 (0.0-0.7); EOS % 1.3 % (0.0-4.0); GRAN # 7.5 K/mm3 (1.4-6.5); HEMATOCRIT 51.2 % (42.0-52.0); LYMPH # 2.8 K/mm3 (1.2-3.4); LYMPH % 23.7 % (20.0-51.0); MEAN CELL VOLUME 84 fl (80.0-100.0); MEAN CORPUSCULAR HEMOGLOBIN 26 pg (27-31); MEAN CORPUSCULAR HGB CONC 31 g/dl (33.0-37.0); MEAN PLATELET VOLUME 10.5 fl (7.4-10.4); MONO # 1.3 K/mm3 (0.1-0.6); MONO % 10.5 % (1.7-9.3); PLATELET COUNT 364 K/mm3 (130-400); RED BLOOD COUNT 6.08 M/mm3 (4.20-5.60)
[2021-09-21 20:02] LABS: ALBUMIN 3.7 gm/dL (3.5-5.0); BILIRUBIN,TOTAL 0.3 mg/dL (0.2-1.2); CALCIUM 9.1 mg/dL (8.4-10.2); CREATININE, serum 0.84 mg/dL (0.72-1.25); POTASSIUM 4.3 mmol/L (3.5-4.5); TOTAL PROTEIN 7.4 gm/dL (6.2-8.1)
[2021-09-21 20:08] LABS: TROPONIN-I 0.023 ng/mL (0.00-0.033)
[2021-09-21 22:25] VITALS: BP 138/80; PULSE 86
== END 2021-09-21 22:26 | disposition home or self-care (01) ==
LOC: COL.ER 18:57
PROVIDERS: Physician Assistant
DX: R07.89 Other chest pain (principal); R55 Syncope and collapse

== ENCOUNTER 2021-12-31 11:58 | Emergency (ER) | payer BC ==
[~2021-12-31] VITALS: Ht 172.7 cm; Wt 95.5 kg
[2021-12-31] VITALS (111 sets, daily range): BP systolic 158; BP diastolic 100; PULSE 101; TEMP 99; O2SAT 83–100
[2021-12-31 12:36] LABS: BASO # 0.1 K/mm3 (0.0-0.2); BASO % 1.2 % (0.0-2.0); EOS # 0.2 K/mm3 (0.0-0.7); EOS % 1.9 % (0.0-4.0); GRAN # 6.4 K/mm3 (1.4-6.5); GRAN % 70.3 % (42.2-75.2); HEMOGLOBIN 17.8 g/dl (13.5-18.0); LYMPH # 1.8 K/mm3 (1.2-3.4); LYMPH % 19.3 % (20.0-51.0); MEAN CELL VOLUME 81 fl (80.0-100.0); MEAN CORPUSCULAR HEMOGLOBIN 26 pg (27-31); MEAN CORPUSCULAR HGB CONC 32 g/dl (33.0-37.0); MEAN PLATELET VOLUME 10.3 fl (7.4-10.4); MONO # 0.6 K/mm3 (0.1-0.6); MONO % 6.8 % (1.7-9.3); PLATELET COUNT 307 K/mm3 (130-400); RED BLOOD COUNT 6.83 M/mm3 (4.20-5.60); REDCELL DISTRIBUTION WIDTH-CV 15.2 % (11.5-14.5)
[2021-12-31 12:40] LABS: HEMATOCRIT 55.3 % (42.0-52.0)
[2021-12-31 12:45] LABS: ALANINE AMINOTRANSFERASE 68 U/L (0-55); ALBUMIN 3.7 gm/dL (3.5-5.0); ALKALINE PHOSPHATASE 47 U/L (40-150); ANION GAP 10 mmol/L (7-16); AST,SGOT 31 U/L (5-34); BILIRUBIN,TOTAL 0.6 mg/dL (0.2-1.2); BLOOD UREA NITROGEN 5 mg/dL (9-21); CALCIUM 8.3 mg/dL (8.4-10.2); CARBON DIOXIDE 22 mmol/L (22-29); CHLORIDE 105 mmol/L (98-107); CREATININE, serum 1.05 mg/dL (0.72-1.25); GLUCOSE 153 mg/dL (70-99); POTASSIUM 3.9 mmol/L (3.5-4.5); SODIUM 137 mmol/L (136-145); TOTAL PROTEIN 7.3 gm/dL (6.2-8.1)
[2021-12-31 13:07] LABS: TROPONIN-I < 0.010 ng/mL (0.00-0.033)
== END 2021-12-31 14:19 | disposition home or self-care (01) ==
LOC: COL.ER 11:58
PROVIDERS: Emergency Medicine
DX: R07.89 Other chest pain (principal); Z20.822 Contact with and (suspected) exposure to COVID-19

== ENCOUNTER 2022-03-30 09:20 | Emergency (ER) | payer BC ==
[~2022-03-30] VITALS: Ht 170.2 cm; Wt 95.5 kg
[2022-03-30 09:29] VITALS: TEMP 97.9
[2022-03-30 09:46] LABS: BASO % 0.8 % (0.0-2.0); EOS # 0.5 K/mm3 (0.0-0.7); EOS % 9.2 % (0.0-4.0); GRAN # 2.6 K/mm3 (1.4-6.5); GRAN % 51.9 % (42.2-75.2); HEMATOCRIT 50.8 % (42.0-52.0); HEMOGLOBIN 15.9 g/dl (13.5-18.0); LYMPH # 1.5 K/mm3 (1.2-3.4); LYMPH % 30.9 % (20.0-51.0); MEAN CELL VOLUME 86 fl (80.0-100.0); MEAN CORPUSCULAR HEMOGLOBIN 27 pg (27-31); MEAN CORPUSCULAR HGB CONC 31 g/dl (33.0-37.0); MEAN PLATELET VOLUME 10.2 fl (7.4-10.4); MONO # 0.4 K/mm3 (0.1-0.6); PLATELET COUNT 242 K/mm3 (130-400); RED BLOOD COUNT 5.88 M/mm3 (4.20-5.60); REDCELL DISTRIBUTION WIDTH-CV 13.9 % (11.5-14.5)
[2022-03-30 09:57] LABS: ALANINE AMINOTRANSFERASE 30 U/L (0-55); ALBUMIN 3.7 gm/dL (3.5-5.0); ALKALINE PHOSPHATASE 47 U/L (40-150); ANION GAP 10 mmol/L (7-16); AST,SGOT 21 U/L (5-34); BILIRUBIN,TOTAL 0.5 mg/dL (0.2-1.2); BLOOD UREA NITROGEN 8 mg/dL (9-21); CALCIUM 9.3 mg/dL (8.4-10.2); CARBON DIOXIDE 25 mmol/L (22-29); CHLORIDE 107 mmol/L (98-107); CREATINE KINASE 118 U/L (30-200); CREATININE, serum 0.82 mg/dL (0.72-1.25); GLUCOSE 106 mg/dL (70-99); POTASSIUM 3.8 mmol/L (3.5-4.5); SODIUM 142 mmol/L (136-145); TOTAL PROTEIN 7.1 gm/dL (6.2-8.1)
[2022-03-30 10:09] LABS: TROPONIN-I < 0.010 ng/mL (0.00-0.033)
[2022-03-30 11:21] VITALS: BP 140/89; PULSE 83
== END 2022-03-30 11:22 | disposition home or self-care (01) ==
LOC: COL.ER 09:20
PROVIDERS: Emergency Medicine
DX: R07.89 Other chest pain (principal); R20.2 Paresthesia of skin; I10 Essential (primary) hypertension; Z28.310 Unvaccinated for COVID-19
CPT/HCPCS: J1885; J2060